=== PATIENT | male | born 1975 | race Caucasian/White ===

== ENCOUNTER 2018-02-09 10:18 | Emergency (ER) | payer OTHER ==
[~2018-02-09] VITALS: Ht 177.8 cm; Wt 95.7 kg
[2018-02-09 10:21] VITALS: BP 127/87
--- NOTE | 2018-02-09 11:25 | RADIOLOGY REPORT ---
EXAMINATION: XR HAND, RIGHT CLINICAL INFORMATION: Right thumb pain after work injury. Presumptive diagnosis: Fracture. COMPARISON: None TECHNIQUE: PA view of the right hand is obtained. PA, oblique and lateral views of the right thumb are obtained. FINDINGS: There is no acute fracture or malalignment. There are no apparent degenerative changes. IMPRESSION: No evidence of acute injury.
--- NOTE | 2018-02-09 11:49 | ED HAND/WRIST INJURY COMPLAINT ---
History of Present Illness General Chief Complaint: Hand or Wrist Injury Stated Complaint: INJURY TO RT THUMB AT WORK Source: patient Exam Limitations: no limitations Vital Signs & Intake/Output Vital Signs & Intake/Output ED Intake and Output 02/10 0000 02/09 1200 Intake Total Output Total Balance Patient 211 lb Weight Weight Reported by Patient Measurement Method Allergies Coded Allergies: NO KNOWN ALLERGIES (08/23/13) Reconcile Medications No Known Home Medications Triage Note: PT TO ED S/P CUT RIGHT THUMB ON ALUMINUM ROLL. CUT TO R THUMB NAIL AREA NOTED, NO ACTIVE BLEEDING NOTED. LAST TETANUS SHOT: COUPLE OF YEARS AGO Triage Nurses Notes Reviewed? yes Occurred: just prior to arrival Duration: minute(s): Timing: single episode today Injury Environment: work Severity: moderate Pain/Injury Location: Right: 1st finger. HPI: 42-year-old male presents emergency department complaining of injury to right thumb while at work prior to arrival. Patient states that a piece of aluminum hit his right nail causing him to bend his nail and THUMB backward. Patient reports mild bleeding around nailbed. He has pain with range of motion of thumb at this time. (Violeta Kimble) Past History Travel History Traveled to [place] past 21 day No Medical History Any Pertinent Medical History? 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 No (Violeta Kimble) Review of Systems Review of Systems Constitutional: Reports: no symptoms. EENTM: Reports: no symptoms. Respiratory: Reports: no symptoms. Cardiovascular: Reports: no symptoms. GI: Reports: no symptoms. Genitourinary: Reports: no symptoms. Musculoskeletal: Reports: see HPI. Skin: Reports: see HPI. Neurological/Psychological: Reports: no symptoms. Hematologic/Endocrine: Reports: no symptoms. Immunologic/Allergic: Reports: no symptoms. All Other Systems: Reviewed and Negative (Violeta Kimble) Physical Exam Physical Exam General Appearance: well developed/nourished, no apparent distress, alert, awake Head: atraumatic, normal appearance Eyes: Bilateral: normal appearance. Ears, Nose, Throat: hearing grossly normal Neck: normal inspection, supple, full range of motion Cardiovascular/Respiratory: no respiratory distress Back: normal inspection, normal range of motion Wrist Left: normal range of motion, normal inspection Wrist Right: normal range of motion, normal inspection Hand Left: normal inspection, normal range of motion Hand Right: TENDERNESS TO THUMB WITH DECREASED ACTIVE ROM D/T PAIN, MILD DISTAL NAIL AVULSION WITHOUT ACTIVE BLEEDING, PROXIMAL NAIL/ROOT IS INTACT Neurologic/Tendon: normal sensation Skin: PARTIAL NAIL AVULSION (Ann HONG,Violeta Carrion) Progress Differential Diagnosis: dislocation, fracture, sprain, NAIL AVULSION Plan of Care: Given patient's injury he likely has finger sprain. No fractures detected on x- ray. Patient also with mild distal nail avulsion however proximal nailbed is intact, his nail is currently is appropriate position, no manipulation necessary. Patient placed in finger splint to prevent further injury to nail and further avulsion. No active bleeding, no lacerations detected. Patient given referral to hand specialist regarding nail injury and his difficulty with thumb ROM. Placed in finger splint for the time being. The patient agrees with the plan of care. Diagnostic Imaging: Viewed by Me: Radiology Read. Discussed w/RAD: Radiology Read. Radiology Impression: PATIENT: NORA PRICE PRESENT AGE: 42 PATIENT ACCOUNT NO: [id number] : 75 LOCATION: [facility] ORDERING PHYSICIAN: Frederick HONG SERVICE DATE: 02/09/18 EXAM TYPE: RAD - XRY-HAND, RIGHT EXAMINATION: XR HAND, RIGHT CLINICAL INFORMATION: Right thumb pain after work injury. Presumptive diagnosis: Fracture. COMPARISON: None TECHNIQUE: PA view of the right hand is obtained. PA, oblique and lateral views of the right thumb are obtained. FINDINGS: There is no acute fracture or malalignment. There are no apparent degenerative changes. IMPRESSION: No evidence of acute injury. DICTATED BY: Tee Dumas MD DATE/TIME DICTATED:1112 BARREL LOADER AND CLEANER:DINORAH DATE/TIME TRANSCRIBED:02/09/181112 CONFIDENTIAL, DO NOT COPY WITHOUT APPROPRIATE AUTHORIZATION. <Electronically signed in Other Vendor System> SIGNED BY: Tee Dumas MD 02/09/18 [id number] (Violeta Kimble) Departure Departure Disposition: HOME OR SELF CARE Condition: Stable Clinical Impression Primary Impression: Finger sprain Qualifiers: Encounter type: initial encounter Finger: thumb Sprain of finger site: unspecified site Laterality: right Qualified Code: S63.601A - Unspecified sprain of right thumb, initial encounter Secondary Impressions: Injury of nail Referrals: Patient Has No Primary Care Dr (PCP/Family) Dhruv MERCHANT,Rogelio Kahn Additional Instructions: Begin ibuprofen 800mg up to 3 times a day for 5-7 days to help with pain and swelling. Wear finger splint wear active to prevent further injury to your nail. Given your nail injury and difficult with moving her thumb is recommended he follow-up with a hand specialist for further evaluation. Return here for worsening symptoms or concerns. Please note that there might be incidental findings in your evaluation that are unrelated to the current emergency department visit. Please notify your primary care doctor about this emergency department visit in order to obtain and review all of the testing performed so that these incidental findings can be monitored as needed. If you had an x-ray performed, please understand that some fractures may not be seen on the initial set of x-rays. If your symptoms persist you might need a repeat set of x-rays to check for such a fracture. If you had a laceration evaluated, please understand that foreign bodies such as glass or wood may not be visible to the naked eye or on plain x-rays. If the wound becomes red, swollen, increasingly more painful or if there is any drainage from the wound, please have it reevaluated by a physician for the possibility of a retained foreign body. If you're unable to follow up as outlined in the discharge instructions please return to the emergency department. Thank you for choosing the [facility] Emergency Department for your care. It was a pleasure to serve you today. Departure Forms: Customer Survey General Discharge Information Industrial Accident Report Prescriptions: Current Visit Scripts No Known Home Medications (Violeta Kimble) PA/GRAPHIC DESIGN SPECIALIST Co-Sign Statement Statement: ED Attending supervision documentation- [] I saw and evaluated the patient. I have also reviewed all the pertinent lab results and diagnostic results. I agree with the findings and the plan of care as documented in the PA's/GRAPHIC DESIGN SPECIALIST's documentation. [x] I have reviewed the ED Record and agree with the PA's/GRAPHIC DESIGN SPECIALIST's documentation. [] Additions or exceptions (if any) to the PAs/GRAPHIC DESIGN SPECIALIST's note and plan are summarized below: [] (Jonny MERCHANT,[facility])
== END 2018-02-09 12:06 ==
LOC: ERH 10:18
DX: S63.601A Unspecified sprain of right thumb, initial encounter (principal); S69.91XA Unspecified injury of right wrist, hand and finger(s), initial encounter; W22.8XXA Striking against or struck by other objects, initial encounter; Y92.89 Other specified places as the place of occurrence of the external cause; Y93.9 Activity, unspecified; F17.210 Nicotine dependence, cigarettes, uncomplicated
CPT/HCPCS: 73130-RT